=== PATIENT | female | born 1940 | race Caucasian/White ===

== ENCOUNTER → 2021-12-01 | Day surgery (SDC) | payer OTHER, BC ==
--- NOTE | 2021-12-01 11:40 | RAD REPORT ---
EXAM DESCRIPTION: US - Guided FNA Non Breast - 12/01/2021 10:49 am CLINICAL HISTORY: E04.2 COMPARISON: Thyroid Para Parotid Gland dated 11/11/2021; Ct Skull/Thigh dated 07/02/2021 TECHNIQUE: Patient presents for ultrasound-guided FNA of right-sided thyroid nodules. Prior imaging study was reviewed. The ultrasound-guided FNA procedure, risks and alternatives were discussed with the patient in detail . After answering all questions both oral and written consent were obtained. Patient had no contraind icated allergy or medication history. Time-out was performed. Anterior right neck was prepped and draped in the usual sterile fashion. Sonographic evaluation demon strated in approximately 15-18 mm nodule in the superior aspect. Approximately 25 mm nodule is presen t more inferiorly in the right lobe. These the correlates to the 2 dominant solid nodule seen on the November 11 ultrasound. Both nodules could be access through a single entry site. The skin and deeper tissues were anesthetized with 1% lidocaine. Under direct sonographic visualizati on a total of 4 FNA procedures performed of the smaller more superior nodule using 25 gauge needles. Under ultrasound guidance the larger more inferior nodule was also subjected to FNA using 4 25 gauge needles. All obtained material was given to pathology for cytology/histology assessment. Postprocedure imaging showed no hematoma. There were no immediate complications. Sterile bandage was placed to the punctur e site. IMPRESSION: Successful ultrasound-guided FNA of 2 dominant solid nodules in the right lobe of the th yroid gland. All obtained material was given to pathology for cytology/ histology assessment.
== END ==
LOC: FNA 09:29 → SUPCPDRO 09:29
PROVIDERS: ATTEND Family Medicine
PROC: 0GBH3ZX Excision of Right Thyroid Gland Lobe, Percutaneous Approach, Diagnostic (ICD-10-PCS; principal; 2021-12-01)
DX: E04.2 Nontoxic multinodular goiter (principal)
CPT/HCPCS: 88162